=== PATIENT | female | born 1980 | race Hispanic/Latino ===

== ENCOUNTER → 2020-01-10 | Day surgery (SDC) | payer BC ==
[~2020-01-10] VITALS: Ht 162.6 cm; Wt 119.7 kg
[~2020-01-10] MED LIST: FENTANYL CITRATE/PF 100MCG/2 ML INJ ONE; HYDROCODONE/APAP 5MG-325MG TAB ONE; IOPAMIDOL 370 MG/ML 200 ML INFUS..BTL INJ ONE; KETOROLAC TROMETHAMINE 30 MG/ML VIAL ONE; LIDOCAINE HCL 2% LOCAL INJ 5 ML SDV VIAL INJ ONE; MIDAZOLAM HCL 2 MG/2 ML VIAL ONE; ONDANSETRON HCL INJ 2MG/ML 2ML 2 MG/ML VIAL ONE; PROPOFOL IV EMULSION 10 MG/ML 20 ML VIAL ONE; ROCURONIUM BROMIDE 10 MG/ML 5ML VIAL IV ONE; SEVOFLURANE INHAL SOLN 250 ML PEN BTL ONE; SODIUM CHLORIDE 0.9% 100 ML ONE; SODIUM CHLORIDE 0.9% 1000ML 1,000 ML IV ONE; SUCCINYLCHOLINE CHLORIDE 20 MG/ML 10ML VIAL ONE
[2020-01-10 12:04] LABS: BASOPHILS # (AUTO) 0.1 (0.0-0.1); BASOPHILS % 0.8 % (0.0-1.0); EOSINOPHILS # (AUTO) 0.1 (0.0-0.4); EOSINOPHILS % 1.4 % (0.0-6.0); HEMATOCRIT 38.2 % (34.2-44.1); HEMOGLOBIN 11.4 g/dL (12.0-16.0); LYMPHOCYTES # (AUTO) 1.8 (1.0-3.2); LYMPHOCYTES % 28.4 % (18.0-39.1); MEAN CORPUSCULAR HEMOGLOBIN 25.4 pg (28-32); MEAN CORPUSCULAR HGB CONC 29.8 g/dL (31-35); MEAN CORPUSCULAR VOLUME 85.3 fL (81-99); MONOCYTES # (AUTO) 0.5 (0.2-0.8); MONOCYTES % 8.4 % (4.4-11.3); NEUTROPHILS # (AUTO) 3.9 (2.1-6.9); NEUTROPHILS % 60.7 % (38.7-80.0); PLATELET COUNT 300 x10e3/uL (140-360); RED BLOOD COUNT 4.48 x10e6/uL (3.6-5.1)
[2020-01-10 12:15] LABS: CLARITY,URINE CLOUDY (CLEAR); COLOR,URINE RED (YELLOW); LEUKOCYTE ESTERASE ,URINE NEGATIVE (NEGATIVE); NITRITE,URINE NEGATIVE (NEGATIVE); PROTEIN,URINE DIPSTICK >=300 (NEGATIVE)
--- NOTE | 2020-01-10 12:15 | Emergency Department Note ---
History of Present Illnes History of Present Illness Chief Complaint: General Medicine Complaints History of Present Illness This is a 39 year old female arrived to the ED with complaints of vaginal bleeding, pt states she is on her menstrual cycle today after 7-8 months. . 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 Any updates have been documented here. Past Medical History Recent Fever: No Clinical Suspicion of Infectio: No New/Unexplained Change in Ment: No Past Medical History: Anemia Other Medical History: tachycardia Past Surgical History: Social History Physically hurt or threatened: No Physical Exam Related Data Allergies: Coded Allergies: No Known Allergies (Unverified , 01/10/20) Triage Vital Signs Vital Signs Date Time Temp Pulse Resp B/P (MAP) Pulse Ox O2 Delivery O2 Flow Rate FiO2 01/10/20 10:56 99.1 86 16 115/83 100 Room Air Vital signs reviewed: Yes Physical Exam CONSTITUTIONAL Constitutional: Present well-developed, Present well-nourished HENT HENT: Present normocephalic, Present atraumatic, Present oropharynx clear/moist, Present nose normal HENT L/R: Present left ext ear normal, Present right ext ear normal EYES Eyes: Reports PERRL, Reports conjunctivae normal NECK Neck: Present ROM normal PULMONARY Pulmonary: Present effort normal, Present breath sounds normal CARDIOVASCULAR Cardiovascular: Present regular rhythm, Present heart sounds normal, Present capillary refill normal, Present normal rate GASTROINTESTINAL Abdominal: Present soft, Present nontender, Present bowel sounds normal GENITOURINARY Genitourinary: Present other (?mass over cervix, active bleeding on pelvic exam, non-tender, no adenxal tenderness) SKIN Skin: Present warm, Present dry MUSCULOSKELETAL Musculoskeletal: Present ROM normal NEUROLOGICAL Neurological: Present alert, Present oriented x 3, Present no gross motor or sensory deficits PSYCHOLOGICAL Psychological: Present mood/affect normal, Present judgement normal Results Laboratory Result Diagram: 01/10/20 1106 Laboratory Laboratory Tests Test 01/10/20 11:06 White Blood Count 6.34 x10e3/uL (4.8-10.8) Red Blood Count 4.48 x10e6/uL (3.6-5.1) Hemoglobin 11.4 g/dL (12.0-16.0) Hematocrit 38.2 % (34.2-44.1) Mean Corpuscular Volume 85.3 fL (81-99) Mean Corpuscular Hemoglobin 25.4 pg (28-32) Mean Corpuscular Hemoglobin Concent 29.8 g/dL (31-35) Red Cell Distribution Width 21.0 % (11.7-14.4) Platelet Count 300 x10e3/uL (140-360) Neutrophils (%) (Auto) 60.7 % (38.7-80.0) Lymphocytes (%) (Auto) 28.4 % (18.0-39.1) Monocytes (%) (Auto) 8.4 % (4.4-11.3) Eosinophils (%) (Auto) 1.4 % (0.0-6.0) Basophils (%) (Auto) 0.8 % (0.0-1.0) Neutrophils # (Auto) 3.9 (2.1-6.9) Lymphocytes # (Auto) 1.8 (1.0-3.2) Monocytes # (Auto) 0.5 (0.2-0.8) Eosinophils # (Auto) 0.1 (0.0-0.4) Basophils # (Auto) 0.1 (0.0-0.1) Absolute Immature Granulocyte (auto 0.02 x10e3/uL (0-0.1) Assessment & Plan Medical Decision Making MDM 39 yo F arrived to the ED with complaints of vaginal bleeding, pelvic exam showed profuse bleeding. Pt required DIRECTOR OF MARKET RESEARCH evaluation and went to the OR for an emergent D&C. Assessment & Plan Final Impression: (1) DUB (dysfunctional uterine bleeding) Depart Disposition: ADMITTED Last Vital Signs Date Time Temp Pulse Resp B/P (MAP) Pulse Ox O2 Delivery O2 Flow Rate FiO2 01/10/20 10:56 99.1 86 16 115/83 100 Room Air Medications in the ED Sodium Chloride 1,000 ml @ 999 mls/hr ONCE ONCE IV Last administered on 01/10/20at 11:49; Admin Dose 999 MLS/HR; Start 01/10/20 at 11:30; Stop 01/10/20 at 12:30 WOLFGANG EMERY DO Jan 10, 2020 12:15
[2020-01-10 12:16] LABS: BACTERIA,URINE RARE /HPF; BILIRUBIN,URINE SMALL (NEGATIVE); EPITHELIAL CELLS,URINE FEW /LPF; KETONES,URINE NEGATIVE (NEGATIVE); RBC,URINE >50 /HPF (0-5); URINE UROBILINOGEN 0.2 mg/dL (0.2 - 1); WBC,URINE (MAN) >50 /HPF (0-5)
[2020-01-10 12:23] LABS: ALANINE AMINOTRANSFERASE 21 IU/L (0-55); ALBUMIN 3.3 g/dL (3.5-5.0); ALKALINE PHOSPHATASE 54 IU/L (40-150); ANION GAP 10.1 mmol/L (8-16); BLOOD UREA NITROGEN 10 mg/dL (7-26); BUN/CREATININE RATIO 13 (6-25); CALCIUM 9.2 mg/dL (8.4-10.2); CARBON DIOXIDE 24 mmol/L (22-29); CHLORIDE 106 mmol/L (98-107); EST GLOMERULAR FILTRATION RATE > 60 ML/MIN (60-); GLUCOSE 87 mg/dL (74-118); POTASSIUM 4.1 mmol/L (3.5-5.1); SODIUM 136 mmol/L (136-145)
--- NOTE | 2020-01-10 13:30 | NUR ---
Pelvic exam assist with Dr. Gonzalez
--- NOTE | 2020-01-10 16:00 | NUR ---
OB MD at bedside
--- NOTE | 2020-01-10 16:09 | Diagnostic Imaging Report ---
EXAM: CT Pelvis WITH intravenous contrast INDICATION: Vaginal bleeding COMPARISON: None. TECHNIQUE: Pelvis were scanned utilizing a multidetector helical scanner from the iliac crest to the pubic symphysis following administration of IV contrast. Coronal and sagittal reformations were obtained. Routine protocol was performed. IV CONTRAST: 100cc Isovue 370. ORAL CONTRAST: None RADIATION DOSE: Total DLP: 463 mGy*cm COMPLICATIONS: None FINDINGS: LINES and TUBES: None. GI TRACT: Diverticulosis without CT evidence of diverticulitis. No abnormal bowel thickening. No bowel obstruction. Normal appendix. PELVIC ORGANS/BLADDER: Multiple enhancing structures in the body of the uterus most likely represent fibroids. LYMPH NODES: No lymphadenopathy. VESSELS: Unremarkable. PERITONEUM / RETROPERITONEUM: No free air or fluid. BONES: No acute osseous injury. No suspicious lytic or blastic lesion. SOFT TISSUES: Unremarkable. IMPRESSION: Heterogeneously enhancing uterine lesions most likely represent fibroids. Diverticulosis. Signed by: Maya Ferguson MD on 01/10/2020 4:05 PM
[2020-01-10 17:22] LABS: HEMOGLOBIN 9.9 g/dL (12.0-16.0)
[2020-01-10 19:05] VITALS: BP 112/78
--- NOTE | 2020-01-24 11:24 | Operative Report ---
DATE OF PROCEDURE: 01/10/2020 SURGEON: Maile Clark MD. SENIOR BUSINESS MANAGER: None. PREOPERATIVE DIAGNOSIS: Abnormal uterine bleeding. POSTOPERATIVE DIAGNOSES: Abnormal uterine bleeding, fibroid uterus, and endometrial polyp. PROCEDURES PERFORMED: Vaginal myomectomy, dilatation and curettage, and hysteroscopic polypectomy. ANESTHESIA: General. ESTIMATED BLOOD LOSS: Approximately 100 mL. COMPLICATIONS: None. FINDINGS: Exam under anesthesia revealed a large firm mass at the cervix, which was revealed to be an approximately 6 cm fibroid, protruding from within the endometrial cavity just beyond the level of the external cervical os. Her uterus was also enlarged and irregular. Hysteroscopic findings revealed multiple endometrial polyps. SPECIMENS: Fibroid and endometrial curettings with fragments of polyps. INDICATIONS: The patient is a 39-year-old, 5, para 4-0-1-4, who presented to the emergency room with abnormal uterine bleeding and was found to have a mass protruding from her cervix, which was consistent with uterine fibroids. PROCEDURE NOTE: Prior to the procedure, the risks, benefits, indications, and alternatives were discussed and the patient agreed to proceed. Following anesthesia, the patient was placed in the modified dorsal lithotomy position in [facility]. Prepping and draping was performed in typical sterile fashion and a time-out was done. A Beth catheter was placed in the bladder. A weighted speculum was placed in the vagina and the mass protruding from the cervix was examined and found to be consistent with a pedunculated submucosal fibroid protruding from within the endometrial cavity just beyond the level of the external cervical os. This mass was grasped with a tenaculum and was sequentially dissected away from its stalk using both surgical Palacios scissors and Bovie cautery. The fibroid was sent to pathology. The cervix was then grasped with a tenaculum and the hysteroscope was inserted with the findings as previously mentioned. The TruClear device was inserted into the hysteroscope and used to perform an endometrial polypectomy under direct visualization as well as removing the remainder of the stalk from the previously removed myoma. A sharp curettage was then performed until a gritty texture was noted. All endometrial tissue including endometrial polyps and the stalk of the fibroid was then sent to pathology. All instruments were then removed from the patient. The tenaculum sites were noted to be hemostatic. The patient was awakened from anesthesia and in stable condition. All sponge, lap, needle, and instrument counts were correct x2 at the end of the procedure and the patient was brought to the recovery room. MD YURY Morrow/FLY /[id number] JEREMIAS
== END | disposition home or self-care (01) ==
LOC: ER 11:00 → OR 16:30
PROVIDERS: ATTEND Obstetrics & Gynecology Obstetrics
DX: D25.0 Submucous leiomyoma of uterus (principal); N84.0 Polyp of corpus uteri; D64.9 Anemia, unspecified; R00.0 Tachycardia, unspecified; E66.9 Obesity, unspecified; F32.9 Major depressive disorder, single episode, unspecified; F17.210 Nicotine dependence, cigarettes, uncomplicated
CPT/HCPCS: 36415; 58145; 58558; 72193; 80053; 81001; 84702; 85014; 85018; 85025; 88305; 99284; J0330; J1885; J2001; J2405; J2704; J3010; J7030; J7050; Q9967